=== PATIENT | female | born 1985 | race Caucasian/White ===

== ENCOUNTER 2019-01-13 12:26 | Inpatient (IN) | payer BC ==
[~2019-01-13] VITALS: Ht 160 cm; Wt 72.0 kg
[2019-01-28] MEDS ORDERED: OXYTOCIN 30U/ 0.9% NaCL 500ML 500 ML IV ONE (06:07)
[2019-01-28] MEDS ORDERED: OXYTOCIN 30U/ 0.9% NaCL 500ML 500 ML IV PRN (06:07)
[2019-01-28] MEDS ORDERED: NEWBORN KIT ONE (06:18)
[2019-01-28] MEDS ORDERED: FENTANYL PF 100 MCG/2ML IVPush PRN (06:30)
[2019-01-28] MEDS ORDERED: FENTANYL PF 100 MCG/2ML IV PRN (06:30)
[2019-01-28] MEDS ORDERED: PLEASE ENTER ALLERGIES MC SCH (06:30)
[2019-01-28] MEDS ORDERED: PENICILLIN GK 5,000,000 UNITS in DEXTROSE 5% 100 ML IVPB ONE (06:30)
[2019-01-28 06:57] LABS: BASOPHILS # (AUTO) 0.03 x10^3/uL (0-0.1); BASOPHILS % (AUTO) 0 % (0-1); EOSINOPHILS # (AUTO) 0.08 x10^3/uL (0-0.4); EOSINOPHILS % (AUTO) 1 % (1-7); LYMPHOCYTES # (AUTO) 1.43 x10^3/uL (1-3.4); LYMPHOCYTES % (AUTO) 18 % (22-44); MD NO; MEAN CORPUSCULAR HEMOGLOBIN 31.3 pg (27.0-34.8); MEAN CORPUSCULAR HGB CONC 33.2 g/dL (32.4-35.8); MEAN CORPUSCULAR VOLUME 94.2 fL (80-100); MONOCYTES # (AUTO) 0.76 x10^3/uL (0.2-0.8); MONOCYTES % (AUTO) 9 % (2-9); NEUTROPHILS # (AUTO) 5.87 x10^3/uL (1.8-6.8); NEUTROPHILS % (AUTO) 72 % (42-75); PLATELET COUNT 186 x10^3/uL (130-400); RED BLOOD COUNT 3.92 x10^6/uL (3.82-5.3); RED CELL DISTRIBUTION WIDTH 13.3 % (9.6-15.2)
[2019-01-28] MEDS ORDERED: MISOPROSTOL 200 MCG TABLET ONE (09:30)
[2019-01-28] MEDS ORDERED: LIDOCAINE 1%, 20ML ONE (09:30)
[2019-01-28] MEDS ORDERED: OXYTOCIN 30U/ 0.9% NaCL 500ML 1,000 ML ONE (09:30)
[2019-01-28] MEDS: PENICILLIN GK 2,500,000 UNITS in DEXTROSE 5% 100 ML IVPB SCH ×4 (10:40→22:07)
[2019-01-28] MEDS: LACTATED RINGERS 1,000 ML IV SCH ×2 (14:07→19:10)
[2019-01-28] MEDS ORDERED: LACTATED RINGERS 1,000 ML IV SCH ×2 (15:38→16:56)
[2019-01-28] MEDS ORDERED: FENTANYL/BUPIV./NS/PF 250 ML EPIDCONT SCH ×2 (15:38→16:56)
[2019-01-28] MEDS ORDERED: FENTANYL PF 100 MCG/2ML ONE ×2 (15:41→23:17)
[2019-01-28] MEDS ORDERED: FENTANYL PF 500 MCG, BUPIVACAINE/PF 0.5%, 30ML 62.5 ML in SODIUM CHLORIDE 0.9% 177.5 ML EPIDCONT SCH (16:00)
[2019-01-28] MEDS ORDERED: EPHEDRINE 50 MG/ML, 1ML IVPush PRN (16:00)
[2019-01-28] MEDS ORDERED: LACTATED RINGERS 1,000 ML IVBOLUS PRN ×2 (16:00→17:00)
[2019-01-28] MEDS ORDERED: NALOXONE 0.4 MG/ML, 1ML IVPush PRN (17:00)
[2019-01-28] MEDS: EPHEDRINE 50 MG/ML, 1ML IVPush PRN ×2 (17:05→18:50)
[2019-01-28] MEDS ORDERED: D5%-LACTATED RINGERS 1,000 ML IV SCH (20:10)
[2019-01-28] MEDS ORDERED: SODIUM CITRATE/CITRIC ACID 15 ML UDC ONE (20:59)
[2019-01-28] MEDS ORDERED: METOCLOPRAMIDE 5 MG/ML, 2ML ONE (21:00)
[2019-01-29] MEDS ORDERED: LIDOCAINE-MPF 2% ,5ML ONE (00:46)
[2019-01-29] MEDS ORDERED: CEFAZOLIN 1,000 MG ONE (00:59)
[2019-01-29] MEDS ORDERED: EPHEDRINE 50 MG/ML, 1ML ONE (00:59)
[2019-01-29] MEDS ORDERED: OXYTOCIN 10 UNITS/ML, 1ML ONE (00:59)
[2019-01-29] MEDS ORDERED: AZITHROMYCIN 500 MG in SODIUM CHLORIDE 0.9% 250 ML IV ONE (01:00)
[2019-01-29] MEDS ORDERED: LACTATED RINGERS 1,000 ML IVBOLUS ONE (01:00)
[2019-01-29] MEDS ORDERED: SODIUM CITRATE/CITRIC ACID 15 ML UDC PO ONE (01:00)
[2019-01-29] MEDS: LACTATED RINGERS 1,000 ML IV SCH ×6 (01:56→21:56)
[2019-01-29] MEDS ORDERED: KETOROLAC 30 MG/1 ML ONE (01:59)
[2019-01-29] MEDS ORDERED: MORPHINE SULFATE 4 MG/ML, 1ML IVPush PRN ×2 (02:00→02:30)
[2019-01-29] MEDS ORDERED: MISOPROSTOL 200 MCG TABLET PR PRN (02:00)
[2019-01-29] MEDS ORDERED: CARBOPROST TROMETHAMINE 250 MCG/ML, 1ML IM PRN (02:00)
[2019-01-29] MEDS ORDERED: OXYcodone IR 5MG TABLET PO PRN (02:00)
[2019-01-29] MEDS ORDERED: METHYLERGONOVINE 0.2 MG/ML IM PRN (02:00)
[2019-01-29] MEDS ORDERED: ONDANSETRON 2MG/ML, 2ML IV PRN (02:00)
[2019-01-29] MEDS ORDERED: morphine SULFATE 10 MG/ML, 1ML IM PRN (02:00)
[2019-01-29] MEDS: KETOROLAC 30 MG/1 ML IV SCH ×4 (02:23→20:47)
[2019-01-29] MEDS ORDERED: OXYcodone 5 MG/5 ML ORAL.SOL UDC ONE (02:27)
[2019-01-29] MEDS ORDERED: FENTANYL PF 100 MCG/2ML ONE (02:27)
[2019-01-29] MEDS ORDERED: FENTANYL PF 100 MCG/2ML IV PRN (02:30)
[2019-01-29] MEDS ORDERED: PROMETHAZINE 25 MG/ML, 1ML IV PRN (02:30)
[2019-01-29] MEDS ORDERED: MIDAZOLAM 1 MG/ML, 2ML IV PRN (02:30)
[2019-01-29] MEDS ORDERED: MEPERIDINE/PF 25MG/0.5ML IVPush PRN (02:30)
[2019-01-29] MEDS ORDERED: OXYcodone 5 MG/5 ML ORAL.SOL UDC PO PRN (02:30)
[2019-01-29] MEDS: OXYTOCIN 30U/ 0.9% NaCL 500ML 500 ML IV SCH ×3 (03:26→21:56)
[2019-01-29 04:03] VITALS: BP 111/66
[2019-01-29 07:35] VITALS: BP 103/68
[2019-01-29] MEDS: PRENATAL VIT/IRON/FA 1 EACH TABLET PO SCH (07:48)
[2019-01-29] MEDS: OXYcodone IR 5MG TABLET PO PRN ×4 (07:48→20:06)
[2019-01-29 09:40] LABS: BASOPHILS # (AUTO) 0.05 x10^3/uL (0-0.1); BASOPHILS % (AUTO) 0 % (0-1); EOSINOPHILS % (AUTO) 0 % (1-7); LYMPHOCYTES # (AUTO) 0.99 x10^3/uL (1-3.4); LYMPHOCYTES % (AUTO) 7 % (22-44); MD NO; MEAN CORPUSCULAR HEMOGLOBIN 31.7 pg (27.0-34.8); MEAN CORPUSCULAR HGB CONC 33.2 g/dL (32.4-35.8); MEAN CORPUSCULAR VOLUME 95.4 fL (80-100); MEAN PLATELET VOLUME 6.9 fL (7.4-10.4); MONOCYTES # (AUTO) 0.87 x10^3/uL (0.2-0.8); MONOCYTES % (AUTO) 6 % (2-9); NEUTROPHILS # (AUTO) 11.77 x10^3/uL (1.8-6.8); NEUTROPHILS % (AUTO) 86 % (42-75); PLATELET COUNT 157 x10^3/uL (130-400); RED CELL DISTRIBUTION WIDTH 13.4 % (9.6-15.2)
[2019-01-29 09:41] LABS: HEMOGRAM NOTE RECHECKED
[2019-01-29 14:00] VITALS: BP 124/78
[2019-01-29 19:29] VITALS: BP 107/73
[2019-01-29] MEDS ORDERED: DOCUSATE 100 MG CAPSULE ONE (20:04)
[2019-01-30] MEDS: OXYcodone IR 5MG TABLET PO PRN ×2 (00:18→21:02)
[2019-01-30] MEDS: LACTATED RINGERS 1,000 ML IV SCH (01:56)
[2019-01-30] MEDS ORDERED: KETOROLAC 30 MG/1 ML ONE (02:37)
[2019-01-30] MEDS: KETOROLAC 30 MG/1 ML IV SCH ×4 (02:41→20:30)
[2019-01-30 07:25] VITALS: BP 93/58
[2019-01-30] MEDS ORDERED: DOCUSATE 100 MG CAPSULE ONE (09:19)
[2019-01-30] MEDS: PRENATAL VIT/IRON/FA 1 EACH TABLET PO SCH (09:20)
[2019-01-30] MEDS: DOCUSATE 100 MG CAPSULE PO SCH ×2 (09:30→21:03)
[2019-01-30 12:00] VITALS: BP 128/78
[2019-01-30 20:00] VITALS: BP 107/70
[2019-01-30] MEDS: IBUPROFEN 800 MG TABLET PO PRN (21:02)
[2019-01-31 07:22] VITALS: BP 86/54
[2019-01-31] MEDS: PRENATAL VIT/IRON/FA 1 EACH TABLET PO SCH (07:23)
[2019-01-31] MEDS: DOCUSATE 100 MG CAPSULE PO SCH (07:23)
[2019-01-31] MEDS: IBUPROFEN 800 MG TABLET PO PRN (07:23)
[2019-01-31] MEDS: OXYcodone IR 5MG TABLET PO PRN ×2 (07:23→11:49)
[2019-01-31] MEDS ORDERED: OXYC-302 PO (09:45)
[2019-01-31] MEDS ORDERED: IBUP-1222 PO (09:45)
== END 2019-01-31 17:46 | disposition home or self-care (01) | DRG 788 ==
LOC: LDIP 01-28 05:55 → 2NW 01-29 03:45
PROVIDERS: ADMIT Student in an Organized Health Care Education/Training Program; ATTEND Student in an Organized Health Care Education/Training Program
PROC: 10907ZC Drainage of Amniotic Fluid, Therapeutic from Products of Conception, Via Natural or Artificial Opening (ICD-10-PCS; 2019-01-28)
PROC: 3E033VJ Introduction of Other Hormone into Peripheral Vein, Percutaneous Approach (ICD-10-PCS; 2019-01-28)
PROC: 10D00Z1 Extraction of Products of Conception, Low, Open Approach (ICD-10-PCS; principal; 2019-01-29)
PROC: 3E0234Z Introduction of Serum, Toxoid and Vaccine into Muscle, Percutaneous Approach (ICD-10-PCS; 2019-01-29)
DX: O48.0 Post-term pregnancy (principal); Z3A.42 42 weeks gestation of pregnancy; Z37.0 Single live birth; O99.824 Streptococcus B carrier state complicating childbirth; O34.211 Maternal care for low transverse scar from previous cesarean delivery; O76 Abnormality in fetal heart rate and rhythm complicating labor and delivery; O66.40 Failed trial of labor, unspecified; O64.0XX0 Obstructed labor due to incomplete rotation of fetal head, not applicable or unspecified; Z82.49 Family history of ischemic heart disease and other diseases of the circulatory system; Z91.030 Bee allergy status; Z83.3 Family history of diabetes mellitus; Z23 Encounter for immunization
CPT/HCPCS: 36415; J2790; J7121; 82803; 85025; 85461; 86850; 86900; G0378; J0690; J1885; J2540; J3010; J2590; J7120

== ENCOUNTER 2020-12-20 12:14 | Outpatient (CLI) | payer BC ==
[~2020-12-20 12:14] MED LIST: IBUP-1222 PO; OXYC1TAB14 PO
== END 2020-12-20 13:08 | disposition home or self-care (01) ==
LOC: LDOP 12:14
PROVIDERS: ATTEND Student in an Organized Health Care Education/Training Program
DX: O09.93 Supervision of high risk pregnancy, unspecified, third trimester (principal); O36.8130 Decreased fetal movements, third trimester, not applicable or unspecified; Z3A.40 40 weeks gestation of pregnancy
CPT/HCPCS: 59025

== ENCOUNTER 2020-12-28 00:43 | Inpatient (IN) | payer BC ==
[~2020-12-28] VITALS: Ht 160 cm; Wt 73.0 kg
[2020-12-28] MEDS ORDERED: LIDOCAINE 1%, 20ML ONE (00:49)
[2020-12-28] MEDS ORDERED: MISOPROSTOL 200 MCG TABLET ONE (00:49)
[2020-12-28] MEDS ORDERED: NEWBORN KIT ONE (00:49)
[2020-12-28] MEDS ORDERED: CALCIUM CARBONATE 500 MG TAB.CHEW PO PRN ×2 (01:00→16:00)
[2020-12-28] MEDS ORDERED: METOCLOPRAMIDE 5 MG/ML, 2ML IVPush PRN (01:00)
[2020-12-28] MEDS ORDERED: TERBUTALINE 1 MG/ML, 1ML IVPush PRN (01:00)
[2020-12-28] MEDS ORDERED: SODIUM CITRATE/CITRIC ACID 30 ML UDC PO PRN (01:00)
[2020-12-28] MEDS ORDERED: OXYTOCIN 30U/ 0.9% NaCL 500ML 500 ML IV ONE (01:00)
[2020-12-28] MEDS ORDERED: ONDANSETRON 2MG/ML, 2ML IVPush PRN ×2 (01:00→22:00)
[2020-12-28] MEDS ORDERED: ALUMINUM/MAG/SIMETHICONE 30 ML UDC PO PRN (01:00)
[2020-12-28] MEDS ORDERED: PENICILLIN GK 5,000,000 UNITS in DEXTROSE 5% 100 ML IVPB ONE (01:00)
[2020-12-28] MEDS ORDERED: TERBUTALINE 1 MG/ML, 1ML SQ PRN (01:00)
[2020-12-28] MEDS ORDERED: SODIUM CHLORIDE FLUSH 10ML SYR IVF PRN (01:00)
[2020-12-28] MEDS: D5%-LACTATED RINGERS 1,000 ML IV SCH ×3 (01:00→17:00)
[2020-12-28] MEDS ORDERED: FENTANYL PF 100 MCG/2ML IVPush PRN (01:00)
[2020-12-28] MEDS ORDERED: FENTANYL PF 100 MCG/2ML IV PRN (01:00)
[2020-12-28 01:02] LABS: BASOPHILS % (AUTO) 1 % (0-1); EOSINOPHILS % (AUTO) 1 % (1-7); LYMPHOCYTES % (AUTO) 15 % (22-44); MEAN CORPUSCULAR HEMOGLOBIN 31.7 pg (27.0-34.8); MEAN CORPUSCULAR HGB CONC 34.9 g/dL (32.4-35.8); MEAN PLATELET VOLUME 7.9 fL (7.4-10.4); MONOCYTES % (AUTO) 9 % (2-9); NEUTROPHILS % (AUTO) 75 % (42-75); PLATELET COUNT 206 x10^3/uL (130-400); RED BLOOD COUNT 4.27 x10^6/uL (3.82-5.3); RED CELL DISTRIBUTION WIDTH 13.2 % (9.6-15.2)
[2020-12-28] MEDS: LACTATED RINGERS 1,000 ML IV SCH ×7 (01:06→17:00)
[2020-12-28 01:17] LABS: MD NO
[2020-12-28] MEDS ORDERED: BUPIVACAINE 0.25% ONE (01:23)
[2020-12-28] MEDS ORDERED: FENTANYL/BUPIV./NS/PF 250 ML EPIDCONT ONE (01:23)
[2020-12-28] MEDS ORDERED: FENTANYL/BUPIV./NS/PF 250 ML EPIDCONT SCH (02:00)
[2020-12-28] MEDS ORDERED: EPHEDRINE 50 MG/ML, 1ML IVPush PRN (02:00)
[2020-12-28] MEDS ORDERED: LACTATED RINGERS 1,000 ML IVBOLUS PRN (02:00)
[2020-12-28] MEDS ORDERED: PREN-1 PO (03:30)
[2020-12-28] MEDS: PENICILLIN GK 2,500,000 UNITS in DEXTROSE 5% 100 ML IVPB SCH ×5 (05:00→17:00)
[2020-12-28] MEDS ORDERED: SODIUM CITRATE/CITRIC ACID 15 ML UDC ONE (15:14)
[2020-12-28] MEDS ORDERED: LIDOCAINE/MPF 2%-EPI 1:200K, 20 ML ONE (15:52)
[2020-12-28] MEDS ORDERED: DIPH,PERTUSS(ACELL),TET VAC/PF NC IM-VACC PRN (16:00)
[2020-12-28] MEDS ORDERED: METOCLOPRAMIDE 5 MG/ML, 2ML IV PRN (16:00)
[2020-12-28] MEDS ORDERED: MISOPROSTOL 200 MCG TABLET SL PRN (16:00)
[2020-12-28] MEDS ORDERED: MORPHINE SULFATE 4 MG/ML, 1ML IVPush PRN (16:00)
[2020-12-28] MEDS ORDERED: SIMETHICONE 80 MG CHEW TAB PO PRN (16:00)
[2020-12-28] MEDS ORDERED: ONDANSETRON 2MG/ML, 2ML IV PRN (16:00)
[2020-12-28] MEDS ORDERED: ACETAMINOPHEN 325 MG TABLET PO PRN (16:00)
[2020-12-28] MEDS ORDERED: METHYLERGONOVINE 0.2 MG/ML IM PRN (16:00)
[2020-12-28] MEDS: KETOROLAC 30 MG/1 ML IV SCH ×2 (16:00→22:00)
[2020-12-28] MEDS ORDERED: OXYcodone IR 5MG TABLET PO PRN (16:00)
[2020-12-28] MEDS ORDERED: morphine SULFATE/PF 0.5 MG/ML, 10ML ONE (16:02)
[2020-12-28] MEDS ORDERED: DEXAMETHASONE 4 MG/ML, 1ML ONE (16:04)
[2020-12-28] MEDS ORDERED: ONDANSETRON 2MG/ML, 2ML ONE (16:04)
[2020-12-28] MEDS ORDERED: KETOROLAC 30 MG/1 ML ONE (16:04)
[2020-12-28] MEDS ORDERED: SODIUM CHLORIDE FLUSH 0.9%, 20 ML ONE ×2 (16:04→16:12)
[2020-12-28] MEDS ORDERED: OXYTOCIN 10 UNITS/ML, 1ML ONE (16:04)
[2020-12-28] MEDS ORDERED: CEFAZOLIN 1,000 MG ONE (16:04)
[2020-12-28] MEDS ORDERED: PHENYLEPHRINE 10 MG/ML ONE (16:12)
[2020-12-28] MEDS ORDERED: MEPERIDINE/PF 100 MG/ML ONE (16:34)
[2020-12-28] MEDS ORDERED: AZITHROMYCIN 500 MG in SODIUM CHLORIDE 0.9% 250 ML IV STA (17:04)
[2020-12-28] MEDS ORDERED: MEPERIDINE/PF 50 MG/ML ONE (17:41)
[2020-12-28] MEDS: MEPERIDINE/PF 25MG/0.5ML IVPush PRN ×2 (17:43→18:55)
[2020-12-28] MEDS: OXYTOCIN 30U/ 0.9% NaCL 500ML 500 ML IV SCH (18:46)
[2020-12-28 19:25] VITALS: BP 106/71
[2020-12-28] MEDS: DOCUSATE 100 MG CAPSULE PO SCH (21:00)
[2020-12-28] MEDS ORDERED: OXYcodone/APAP 5/325MG TABLET ONE (21:12)
[2020-12-28] MEDS: OXYcodone/APAP 5/325MG TABLET PO PRN (21:54)
[2020-12-28] MEDS ORDERED: MORPHINE SULFATE 4 MG/ML, 1ML IV PRN (22:00)
[2020-12-28] MEDS ORDERED: NO SEDATIVES, TRANQUILIZERS OR ANTIEMETICS XX SCH (22:00)
[2020-12-28] MEDS ORDERED: DIPHENHYDRAMINE 50 MG/ML, 1ML IV PRN (22:00)
[2020-12-28] MEDS ORDERED: NALOXONE 0.4 MG/ML, 1ML IV PRN (22:00)
[2020-12-28] MEDS: KETOROLAC 30 MG/1 ML IVPush SCH (22:08)
[2020-12-28 23:45] VITALS: BP 97/60
[2020-12-29] VITALS (8 sets, daily range): BP systolic 76–104; BP diastolic 33–70
[2020-12-29 00:49] LABS: MEAN CORPUSCULAR HEMOGLOBIN 31.8 pg (27.0-34.8); MEAN CORPUSCULAR HGB CONC 34.5 g/dL (32.4-35.8); MEAN PLATELET VOLUME 7.9 fL (7.4-10.4); PLATELET COUNT 159 x10^3/uL (130-400); RED CELL DISTRIBUTION WIDTH 13.5 % (9.6-15.2)
[2020-12-29 01:04] LABS: MD YES
[2020-12-29 01:08] LABS: <RBC MORPHOLOGY> NORMAL; BAND#(MANUAL) 2.16 x10^3/uL; BANDS%(MANUAL) 10 % (0-7); LYMPH#(MANUAL) 1.08 x10^3/uL (1-3.4); LYMPHS% (MANUAL) 5 % (22-44); MONOS#(MANUAL) 1.08 x10^3/uL (0.3-2.7); MONOS% (MANUAL) 5 % (2-9); SEG#(MANUAL) 17.28 x10^3/uL (1.8-6.8); SEGS% (MANUAL) 80 % (42-75)
[2020-12-29 01:09] LABS: <PLATELET ESTIMATE> ADEQUATE; <PLT MORPHOLOGY> NORMAL PLT MORPH
[2020-12-29] MEDS: LACTATED RINGERS 1,000 ML IV SCH ×5 (01:57→16:00)
[2020-12-29] MEDS: OXYTOCIN 30U/ 0.9% NaCL 500ML 500 ML IV SCH ×2 (02:00→12:00)
[2020-12-29] MEDS: KETOROLAC 30 MG/1 ML IVPush SCH ×2 (03:22→11:56)
[2020-12-29] MEDS: KETOROLAC 30 MG/1 ML IV SCH (04:00)
[2020-12-29] MEDS: EPHEDRINE 50 MG/ML, 1ML IVPush PRN ×2 (04:44→05:28)
[2020-12-29] MEDS ORDERED: EPINEPHRINE 1 MG/ML, 1ML ONE (05:13)
[2020-12-29] MEDS: DOCUSATE 100 MG CAPSULE PO SCH ×2 (08:00→21:06)
[2020-12-29] MEDS: PRENATAL VIT/IRON/FA 1 EACH TABLET PO SCH (08:38)
[2020-12-29] MEDS: OXYcodone/APAP 5/325MG TABLET PO PRN (11:57)
[2020-12-29 12:09] LABS: BASOPHILS % (AUTO) 0 % (0-1); EOSINOPHILS % (AUTO) 0 % (1-7); LYMPHOCYTES % (AUTO) 9 % (22-44); MEAN CORPUSCULAR HEMOGLOBIN 31.7 pg (27.0-34.8); MEAN CORPUSCULAR HGB CONC 34.5 g/dL (32.4-35.8); MEAN PLATELET VOLUME 8.1 fL (7.4-10.4); MONOCYTES % (AUTO) 9 % (2-9); NEUTROPHILS % (AUTO) 82 % (42-75); PLATELET COUNT 155 x10^3/uL (130-400); RED BLOOD COUNT 3.81 x10^6/uL (3.82-5.3); RED CELL DISTRIBUTION WIDTH 13.5 % (9.6-15.2)
[2020-12-29 12:30] LABS: MD SCAN
[2020-12-29] MEDS: IBUPROFEN 800 MG TABLET PO PRN (21:06)
[2020-12-29] MEDS: OXYcodone IR 5MG TABLET PO PRN (21:07)
[2020-12-30] MEDS ORDERED: IBUPROFEN 600 MG TABLET ONE ×2 (06:09→14:36)
[2020-12-30] MEDS: OXYcodone IR 5MG TABLET PO PRN ×2 (06:12→14:37)
[2020-12-30] MEDS: IBUPROFEN 800 MG TABLET PO PRN (06:13)
[2020-12-30 07:40] VITALS: BP 118/85
[2020-12-30] MEDS ORDERED: OXYC5TAB98 PO (07:49)
[2020-12-30] MEDS ORDERED: IBUP-1223 PO (07:49)
[2020-12-30] MEDS: DOCUSATE 100 MG CAPSULE PO SCH (08:01)
[2020-12-30] MEDS: PRENATAL VIT/IRON/FA 1 EACH TABLET PO SCH (08:01)
== END 2020-12-30 15:35 | disposition home or self-care (01) | DRG 785 ==
LOC: LDOP 00:43 → LDIP 01:02 → 2NW 19:15
PROVIDERS: ADMIT Student in an Organized Health Care Education/Training Program; ATTEND Student in an Organized Health Care Education/Training Program
PROC: 10D00Z1 Extraction of Products of Conception, Low, Open Approach (ICD-10-PCS; principal; 2020-12-28)
PROC: 0UB70ZZ Excision of Bilateral Fallopian Tubes, Open Approach (ICD-10-PCS; 2020-12-28)
PROC: 0UB00ZZ Excision of Right Ovary, Open Approach (ICD-10-PCS; 2020-12-28)
PROC: 3E0234Z Introduction of Serum, Toxoid and Vaccine into Muscle, Percutaneous Approach (ICD-10-PCS; 2020-12-29)
DX: O76 Abnormality in fetal heart rate and rhythm complicating labor and delivery (principal); O34.211 Maternal care for low transverse scar from previous cesarean delivery; O62.1 Secondary uterine inertia; O77.0 Labor and delivery complicated by meconium in amniotic fluid; O99.824 Streptococcus B carrier state complicating childbirth; Z30.2 Encounter for sterilization; Z37.0 Single live birth; Z3A.41 41 weeks gestation of pregnancy
CPT/HCPCS: 36415; 85025; 85461; 86592; 86850; 86900; 88302; 88305; G0378; J0456; J0690; J1100; J1885; J2175; J2274; J2405; J2540; J2790; J2370; J2590; J2765; J3010; J7050; J7120